=== PATIENT | male | born 1960 | race African-American/Black ===

== ENCOUNTER 2016-12-02 10:45 | Emergency (ER) | payer OTHER ==
[~2016-12-02] VITALS: Ht 175.3 cm; Wt 89.2 kg
[~2016-12-02 10:45] MED LIST: BP MEDS; DEPAKOTE125 MG PO; DEPAKOTE250 MG PO; DILANTIN100 MG; DILANTIN100 MG PO; FLEXERIL10 MG PO; HYDROCHLORATHIAZIDE; HYDROCHLOROTHIAZIDE; INDOCIN25 MG PO; KEFLEX500 MG PO; LIDODERM 5% P1 PATCH TD; MEDROL DOSEPAK4 MG PO; NAPROSYN500 MG PO; NO HOME MEDS; PERCOCET 5/31 TABLET PO; SKELAXIN800 MG PO; ULTRAM50 MG PO; VALIUM5 MG PO; [UNRECOGNIZED DRUG - REMARK]
[2016-12-02] MEDS ORDERED: MOTRIN800 MG PO (13:19)
[2016-12-02] MEDS ORDERED: VALIUM5 MG PO (13:19)
[2016-12-02 13:34] VITALS: BP 169/105
== END 2016-12-02 13:34 | disposition home or self-care (01) ==
LOC: EME 10:45
DX: M62.838 Other muscle spasm (principal); M54.2 Cervicalgia; M25.512 Pain in left shoulder; H92.09 Otalgia, unspecified ear; F17.200 Nicotine dependence, unspecified, uncomplicated
CPT/HCPCS: 99281; 99283; J1885

== ENCOUNTER 2017-11-20 07:27 | Emergency (ER) | payer OTHER ==
[~2017-11-20] VITALS: Ht 175.3 cm; Wt 92.4 kg
[~2017-11-20 07:27] MED LIST changes: +MOTRIN800 MG PO
[2017-11-20] MEDS ORDERED: DEBROX15 ML BOTH EARS (09:05)
[2017-11-20 09:29] VITALS: BP 170/98
== END 2017-11-20 09:58 | disposition home or self-care (01) ==
LOC: EME 07:27
PROC: 3E1B78Z Irrigation of Ear using Irrigating Substance, Via Natural or Artificial Opening (ICD-10-PCS; principal; 2017-11-20)
DX: H61.21 Impacted cerumen, right ear (principal); I10 Essential (primary) hypertension; F17.200 Nicotine dependence, unspecified, uncomplicated
CPT/HCPCS: 99281; 99284

== ENCOUNTER 2018-02-16 10:55 | Emergency (ER) | payer OTHER ==
[~2018-02-16] VITALS: Ht 175.3 cm; Wt 94.0 kg
[~2018-02-16 10:55] MED LIST changes: +DEBROX15 ML BOTH EARS
[2018-02-16] MEDS ORDERED: NAPROSYN500 MG PO (12:03)
[2018-02-16] MEDS ORDERED: ULTRAM50 MG PO (12:03)
[2018-02-16 12:10] VITALS: BP 165/116
== END 2018-02-16 12:10 | disposition home or self-care (01) ==
LOC: EME 10:55
DX: S43.402A Unspecified sprain of left shoulder joint, initial encounter (principal); X50.9XXA Other and unspecified overexertion or strenuous movements or postures, initial encounter; Y92.810 Car as the place of occurrence of the external cause; Z96.612 Presence of left artificial shoulder joint; E78.5 Hyperlipidemia, unspecified; I10 Essential (primary) hypertension; F17.200 Nicotine dependence, unspecified, uncomplicated
CPT/HCPCS: 73030; 99281; 99283